=== PATIENT | male | born 1985 | race Caucasian/White ===

== ENCOUNTER 2018-01-28 09:07 | Day surgery (SDC) | payer OTHER ==
[~2018-01-28] VITALS: Ht 188 cm; Wt 130.2 kg
[~2018-01-28 09:07] MED LIST: ESCI10 PO; HYDPAM50 PO; HYDR1TAB94 PO; Naprosyn500 MG PO; Norco 10-325 T1 EACH PO; PENVK500 PO; Percocet 5-3251 EACH PO; Percocet 7.5-31 EACH PO; Veetids 500500 MG PO
== END 2018-01-28 22:44 | disposition home or self-care (01) ==
LOC: ORSCMMR 09:07 → ORD 10:00 → ORSCMMR 10:00
PROVIDERS: Internal Medicine Gastroenterology
PROC: 0DBH8ZX Excision of Cecum, Via Natural or Artificial Opening Endoscopic, Diagnostic (ICD-10-PCS; principal; 2018-01-28 10:00)
PROC: 0DBN8ZX Excision of Sigmoid Colon, Via Natural or Artificial Opening Endoscopic, Diagnostic (ICD-10-PCS; principal; 2018-01-28 10:00)
DX: K62.5 Hemorrhage of anus and rectum (principal); D12.5 Benign neoplasm of sigmoid colon; D12.0 Benign neoplasm of cecum; F17.210 Nicotine dependence, cigarettes, uncomplicated; F41.8 Other specified anxiety disorders; Z79.899 Other long term (current) drug therapy
CPT/HCPCS: 88305; J2250; J3010; J7120

== ENCOUNTER 2021-05-15 15:32 | Emergency (ER) | payer OTHER ==
[~2021-05-15] VITALS: Ht 185.4 cm; Wt 117.9 kg
[2021-05-15] MEDS ORDERED: AMOCLA875 PO (17:58)
[2021-05-15] MEDS ORDERED: Norco 5-325 Ta1 EACH PO (17:58)
== END 2021-05-15 18:34 | disposition home or self-care (01) ==
LOC: ER 15:32
DX: S66.322A Laceration of extensor muscle, fascia and tendon of right middle finger at wrist and hand level, initial encounter (principal); S66.324A Laceration of extensor muscle, fascia and tendon of right ring finger at wrist and hand level, initial encounter; X58.XXXA Exposure to other specified factors, initial encounter
CPT/HCPCS: 12002; 99282-25; A9270

== ENCOUNTER 2022-09-29 13:37 | Emergency (ER) | payer OTHER ==
[~2022-09-29] VITALS: Ht 185.4 cm; Wt 117.9 kg
[~2022-09-29 13:37] MED LIST changes: +AMOCLA875 PO; +Norco 5-325 Ta1 EACH PO
[2022-09-29 13:51] VITALS: BP 177/103
[2022-09-29] MEDS ORDERED: LIDO700A20 TOP (15:00)
[2022-09-29] MEDS ORDERED: Norco 5-325 Ta1 EACH PO (15:00)
== END 2022-09-29 15:06 | disposition home or self-care (01) ==
LOC: ER 13:37
DX: S22.41XA Multiple fractures of ribs, right side, initial encounter for closed fracture (principal); S60.512A Abrasion of left hand, initial encounter; S60.511A Abrasion of right hand, initial encounter; S80.812A Abrasion, left lower leg, initial encounter; S80.811A Abrasion, right lower leg, initial encounter; F17.210 Nicotine dependence, cigarettes, uncomplicated; V29.99XA Rider (driver) (passenger) of other motorcycle injured in unspecified traffic accident, initial encounter
CPT/HCPCS: 71101; 99283-25

== ENCOUNTER 2024-04-29 12:59 | Emergency (ER) | payer OTHER ==
[~2024-04-29] VITALS: Ht 185.4 cm; Wt 145.2 kg
[~2024-04-29 12:59] MED LIST changes: +LIDO700A20 TOP
[2024-04-29 13:11] LABS: Calcium, Ionized (POC) 1.01 mmol/L (1.10-1.46); Chloride (POC) 100 mmol/L (98-108); Creatinine (POC) 2.9 mg/dL (0.8-1.3); Glucose (ISTAT POC) 36 mg/dL (70-99); Hemoglobin (POC) 14.6 g/dL (13.5-17.5); Potassium (POC) 3.6 mmol/L (3.5-5.5); Sodium (POC) 138 mmol/L (135-148); Total CO2 (POC) 12 mmol/L (21-32)
[2024-04-29 13:34] LABS: Hematocrit 40.2 % (37.0-53.0); Hemoglobin 12.2 g/dL (13.5-17.5); Mean Corpuscular HGB Conc 30.3 g/dL (31.5-36.5); Mean Corpuscular Volume 99 fL (80-100); Mean Platelet Volume 10.7 fL (9.1-12.4); NRBC ABSOLUTE 0.09 K/mm3 (0.00-0.02); NRBC Auto 0.7 /100 WBC (0.0-0.2); Platelet Count 167 K/mm3 (150-400); RDW Coefficient Variation 15.2 % (11.7-14.2); RDW Standard Deviation 56.3 fL (35.1-46.3); Red Blood Cell Count 4.06 M/mm3 (4.30-5.90); White Blood Cell Count 13.12 K/mm3 (4.00-11.30)
[2024-04-29 13:48] LABS: Acetaminophen, Random <2.0 ug/mL (10.0-30.0); International Normalized Ratio 1.62; Prothrombin Time Results 16.7 Sec (9.7-11.5); Salicylate <1.7 mg/dL (2.8-20.0)
--- NOTE | 2024-04-29 13:52 | NUR ---
Spiritual Care Family/Friend support Pt. was unresponsive at arrival to the hospital. The neighbor who brought the Pt. to the hospital was brought into the ED consult room. Facilitated support and theraputic listening. Sat with neighbor and was able to help affirm the supportive actions that he took. Neighbor was able to get phone numbers to the hospital staff. Neighbor verbalized gratitude for the spiritual care support, Will remain available to the Pt., friend, an family.
[2024-04-29 13:53] LABS: Source, Urine Foley catheter
[2024-04-29 13:55] LABS: Alanine Aminotransfer (ALT/SGP 38 U/L (12-78); Albumin/Globulin Ratio 0.5 (0.8-1.8); Alk Phos 168 U/L (50-136); Anion Gap 29 mmol/L (3-11); Aspartate Aminotrans (AST/SGOT 134 U/L (12-37); Blood Urea Nitrogen 14 mg/dL (8-24); Bun/Creatinine Ratio 5.3 (12.0-20.0); CO2, Blood 11 mmol/L (21-32); Calcium, Blood 9.2 mg/dL (8.5-10.1); Chloride, Blood 101 mmol/L (98-108); Creatinine, Blood 2.63 mg/dL (0.60-1.20); Globulin, Blood 5.7 g/dL (2.2-4.0); Glomerular Filtration Rate 31 (60-); Glucose, Blood 37 mg/dL (70-99); Sodium, Blood 137 mmol/L (136-145); Total Protein, Blood 8.7 g/dL (6.4-8.2)
[2024-04-29 14:10] LABS: Appearance, Urine Hazy (Clear); Bilirubin, Urine Neg (Neg); Blood, Urine 4+ (Neg); Color, Urine Amber (P-Yellow); Glucose Qualitative, Urine Neg (Neg); Ketones, Urine Neg (Neg); Leukocyte Esterase, Urine 1+ (Neg); Nitrite, Urine Neg (Neg); Protein, Urine 2+ (Neg); Specific Gravity, Urine 1.015 (1.003-1.022); Urobilinogen, Urine 2+ (Normal)
[2024-04-29 14:23] LABS: Base Excess Venous -34 mmol/L; Bicarbonate Venous 2.8 mmol/L (24.0-30.0); PCO2 Venous 62.3 mmHg (38-42)
[2024-04-29 14:31] LABS: CORONAVIRUS COVID-19 AG Negative (NEGATIVE); INFLUENZA A AG Positive (NEGATIVE); INFLUENZA B AG Negative (NEGATIVE)
[2024-04-29 14:41] LABS: Base Excess Venous -31.4 mmol/L; Bicarbonate Venous 4.1 mmol/L (24.0-30.0); PCO2 Venous 65.7 mmHg (38-42)
[2024-04-29 14:46] LABS: U Amphetamine Screen Not Detected; U Barbituate Screen Not Detected; U Benzodiazapine Screen Not Detected; U Buprenorphine Screen Not Detected; U Cannabinoids Screen DETECTED; U Cocaine Screen DETECTED; U Methadone Screen Not Detected; U Methamphetamine Screen Not Detected; U Opiates Screen Not Detected; U Oxycodone Screen Not Detected; U Phencyclidine Screen Not Detected
[2024-04-29] MEDS ORDERED: Sodium Bicarb 8.4% Inj 150 MEQ in Dextrose 5% 1,000 ML IV SCH (14:50)
[2024-04-29 14:58] LABS: Bacteria Many /hpf; Mucus Light (0-Heavy); Squamous Epithelial Cells Rare /hpf (Few)
[2024-04-29] MEDS ORDERED: Dextrose 50% 50 ML Vial ONE (15:10)
[2024-04-29 15:15] LABS: BAND PERCENT MAN 6 % (0-8); BASOPHILS PERCENT MAN 0 % (0-2); EOSINOPHILS ABSOLUTE MAN 0.26 K/mm3 (0.00-0.68); EOSINOPHILS PERCENT MAN 2 % (0-6); LYMPHOCYTES ABSOLUTE MAN 2.09 K/mm3 (0.84-5.20); LYMPHOCYTES PERCENT MAN 16 % (21-46); METAMYELOCYTE ABSOLUTE MAN 0.78 K/mm3 (0.00-0.00); METAMYELOCYTE PERCENT MAN 6 % (0-0); MONOCYTES ABSOLUTE MAN 0.78 K/mm3 (0.16-1.47); MONOCYTES PERCENT MAN 6 % (4-13); MYELOCYTE ABSOLUTE MAN 1.04 K/mm3 (0.00-0.00); MYELOCYTE PERCENT MAN 8 % (0-0); NEUTROPHILS ABSOLUTE MAN 8.13 K/mm3 (1.96-9.15); SEG NEUTROPHILS PERCENT MAN 56 % (41-73); TOTAL CELLS COUNTED 100
[2024-04-29 15:58] VITALS: BP 71/35
--- NOTE | 2024-04-29 17:39 | NUR ---
"Spiritual Care | EOL Care and decisions Pt. had passed earlier at appox. 1616. Extended family are at bedside and welcome my visit. Pastoral Care is given. Facilitated a life review with those at bedside. While the family decision maker has not arrived as of this posting the family present feel that [facility] [place] in [place] would be the families choice. Prayed for the family and blessed the Pt. Family present verbalized gratitude for the spiritual care visit."
[2024-04-29] MEDS ORDERED: Sodium Bicarb 8.4% 1 MEQ/ML 50 ML Vial IV ONE (22:35)
[2024-04-29] MEDS ORDERED: Atropine Sulfate 0.1 MG/ML 10ML SYR XX ONE (22:35)
[2024-04-29] MEDS ORDERED: EPINEPhrine HCl 0.1 MG/ML STE Water 10ML SYR XX ONE (22:35)
[2024-04-29] MEDS ORDERED: Calcium Chloride 10% 10 ML SYR IV ONE (22:35)
== END 2024-04-29 20:31 ==
LOC: ER 12:59
PROVIDERS: Student in an Organized Health Care Education/Training Program
DX: I46.9 Cardiac arrest, cause unspecified (principal); R09.2 Respiratory arrest; J10.1 Influenza due to other identified influenza virus with other respiratory manifestations; N17.9 Acute kidney failure, unspecified; Z79.899 Other long term (current) drug therapy; F32.A Depression, unspecified
CPT/HCPCS: 31500; 36556; 51702; 70450; 71045; 71260; 74177; 80047; 80053; 81001; 82803; 82947; 84484; 85014; 85025; 85610; 85730; 87040; 87086; 87147; 87428-QW; 92950; 93005; 93010; 94002; 96365; 96366; 96368; 96375; 96376; 99291-25; C1751; G0480; J0171; J0461; J7060; J7070; J7799; Q9967